=== PATIENT | male | born 1935 | race Caucasian/White ===

== ENCOUNTER 2020-01-14 09:31 | Emergency (ER) | payer MEDICARE ==
[~2020-01-14] VITALS: Ht 167.6 cm; Wt 55.0 kg
[2020-01-14 10:01] LABS: BASO # 0.2 x10^3/uL (0.0-0.2); BASO % 1 % (0-3); EOS # 4.1 x10^3/uL (0.0-0.7); EOS % 13 % (0-3); HEMATOCRIT 43.2 % (39.0-53.0); HEMOGLOBIN 13.9 g/dL (13.0-17.5); LYMPH # 2.8 x10^3/uL (1.0-4.8); LYMPH % 9 % (24-48); MEAN CORPUSCULAR HEMOGLOBIN 28 pg (25-35); MEAN CORPUSCULAR HGB CONC 32 g/dL (31-37); MEAN CORPUSCULAR VOLUME 87 fL (79-100); MONO % 6 % (0-9); NEUT # 21.7 x10^3/uL (1.8-7.7); NEUT % 71 % (31-73); PLATELET COUNT 281 x10^3/uL (140-400); RED BLOOD COUNT 4.96 x10^6/uL (4.30-5.70); RED CELL DISTRIBUTION WIDTH 15.1 % (11.5-14.5); WHITE BLOOD COUNT 30.8 x10^3/uL (4.0-11.0)
[2020-01-14 10:16] LABS: ACETAMIN < 2 mcg/ml (10-30); SALIC < 2.8 mg/dL (2.8-20.0)
[2020-01-14 10:17] LABS: CALCIUM 11.2 mg/dL (8.5-10.1); CREATININE 3.9 mg/dL (0.7-1.3); GFR 14.8; POTASSIUM 4.9 mmol/L (3.5-5.1)
[2020-01-14 10:28] LABS: ALBUMIN 2.5 g/dL (3.4-5.0); ALBUMIN/GLOBULIN RATIO 0.6 (1.0-1.7); MAGNESIUM 1.9 mg/dL (1.8-2.4); TOTAL BILIRUBIN 0.2 mg/dL (0.2-1.0); TOTAL PROTEIN 6.7 g/dL (6.4-8.2)
[2020-01-14 10:49] LABS: BASE EXCESS ABG 5 mmol/L (-3-3); HCO3 ABG 30 mmol/L (21-28); PCO2 ABG 50 mmHg (35-46); PO2 ABG 118 mmHg (65-108); SAT O2 ABG 98 % (92-99)
[2020-01-14 10:58] LABS: FIO2 ABG 2L NC
[2020-01-14] MEDS ORDERED: VANCOMYCIN 2.5 GM in IV NORMAL SALINE 500ML BAG 500 ML IV ONE (11:00)
[2020-01-14] MEDS ORDERED: PIPERACILLIN/TAZOBACTAM 3.375 GM in IV NORMAL SALINE 50ML 50 ML IV ONE (11:00)
[2020-01-14] MEDS ORDERED: IV NORMAL SALINE 1000ML BAG 1,000 ML IV ONE (11:00)
[2020-01-14 11:30] LABS: % BANDS 6 % (0-9); % EOS 7 % (0-5); % LYMPHS 17 % (24-48); % MONOS 3 % (0-10); % SEGS 67 % (35-66)
[2020-01-14 11:31] LABS: PLT ESTIMATE ADEQUATE (ADEQUATE)
--- NOTE | 2020-01-14 11:40 | RAD ---
EXAM: Head and cervical spine CT without contrast. HISTORY: Trauma. TECHNIQUE: Computed tomographic images of the head and cervical spine were obtained without contrast. *One or more of the following individualized dose reduction techniques were utilized for this examination: 1. Automated exposure control. 2. Adjustment of the mA and/or kV according to patient size. 3. Use of iterative reconstruction technique. COMPARISON: None. FINDINGS: Head: There is no intracranial hemorrhage. There is no mass effect or midline shift. There is cerebral atrophy. There are areas of hypodensity within the cerebral white matter due to chronic small vessel disease. No calvarial lesion is seen. There is evidence of lens surgery. There is a left maxillary sinus retention cyst. There is minimal fluid within mastoid air cells. Cervical spine: There is multilevel endplate remodeling. There are bridging and partially bridging anterior osteophytes at the upper cervical levels. There is multilevel facet arthropathy. There is degenerative fusion of the left facet joints at C2-C3 and right facet joints at C3-C4. There are multiple disc bulges and disc extrusions. The combination of degenerative changes results in moderate right greater than left foraminal stenosis at C2-C3, severe right and mild left foraminal stenosis at C3-C4, moderate bilateral foraminal stenosis at C4-C5, and mild bilateral foraminal stenosis at C5-C6. IMPRESSION: 1.No acute intracranial finding or evidence of acute cervical spine trauma. 2. Bilateral cerebral white matter changes, likely due to chronic small vessel disease. 3. Cervical atrophy. 4. 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 Electronically signed by: Aura Hsu MD (01/14/2020 11:37 AM) [id number]
--- NOTE | 2020-01-14 11:42 | RAD ---
EXAM: Chest, single view. HISTORY: Altered mental status. COMPARISON: None. FINDINGS: A frontal view of the chest is obtained. There is suspected bilateral basilar atelectasis. There is no consolidation, pleural effusion or pneumothorax. The heart is normal in size. There are median sternotomy changes. There is a reverse right shoulder arthroplasty. IMPRESSION: Suspected bilateral basilar atelectasis. Electronically signed by: Aura Hsu MD (01/14/2020 11:40 AM) [id number]
[2020-01-14 12:31] LABS: BILIRUBIN,URINE SMALL (NEG); CLARITY,URINE CLEAR; COLOR,URINE YELLOW; NITRITE,URINE NEGATIVE (NEG); PROTEIN,URINE NEGATIVE (NEG-TRACE); UROBILINOGEN,URINE 0.2 mg/dL (0.2 mg/dL)
[2020-01-14 12:40] LABS: AMORPHOUS SEDIMENT,UR PRESENT /HPF; HYALINE CASTS, URINE MANY /HPF
[2020-01-14 12:41] LABS: BACTERIA,URINE 0 /HPF (0-FEW); RBC,URINE 20-40 /HPF (0-2); WBC,URINE 0 /HPF (0-4)
--- NOTE | 2020-01-14 12:47 | PHYS DOC ---
General Adult EDM: Chief Complaint: ALTERED MENTAL STATUS HPI: HPI: History obtained from EMS. Patient is 84-year-old male with unknown past medical history who presents with chief complaint of altered mental status. Per EMS the patient was noted to be more altered than normal at his assisted living facility. They state that they report received from this facility was minimal. They state he typically receives his care at [facility] but diverted to our facility due to low blood pressure readings in route. No history can be obtained from the patient given his accompanying documented history of mild cog nitive impairment and dementia. GCS (9) [id number] Review of Systems: Review of Systems: Review of symptoms unable to be obtained secondary to the patient's altered ment al status Heart Score: HEART Score for Chest Pain: HEART Score for Chest Pain Response (Comments) Value History Slighlty/Non-Suspicious 0 ECG Nonspecific Repolarizatio 1 Age > 65 2 Risk Factors 1 or 2 Risk Factors 1 Troponin >1-<3x Normal Limit 1 Total 5 Risk Factors: Risk Factors: DM, Current or recent (<one month) smoker, HTN, HLP, family history of CAD, obesity. Risk Scores: Score 0 - 3: 2.5% MACE over next 6 weeks - Discharge Home Score 4 - 6: 20.3% MACE over next 6 weeks - Admit for Clinical Observation Score 7 - 10: 72.7% MACE over next 6 weeks - Early Invasive Strategies Current Medications: Current Medications Medications (Trade) Dose Ordered Sig/Breanna Start Time Stop Time Status Last Admin Dose Admin Piperacillin Sod/ Tazobactam Sod 3.375 gm/Sodium Chloride 50 ml @ 100 mls/hr 1X ONCE 01/14/20 11:00 01/14/20 11:29 DC 01/14/20 12:07 100 MLS/HR Sodium Chloride 1,000 ml @ 2,000 mls/hr 1X ONCE 01/14/20 11:00 01/14/20 11:29 DC 01/14/20 12:06 2,000 MLS/HR Vancomycin HCl 2.5 gm/Sodium Chloride 500 ml @ 250 mls/hr 1X ONCE 01/14/20 11:00 01/14/20 12:59 UNV Allergies: Allergies: Allergies Coded Allergies Type Severity Reaction Last Updated Verified Sulfa (Sulfonamide Antibiotics) Allergy Unknown 01/14/20 Yes gabapentin Allergy Unknown 01/14/20 Yes hydrocodone Allergy Unknown 01/14/20 Yes Physical Exam: PE: Constitutional: Well developed, well nourished, no acute distress, non-toxic appearance. [] HENT: Normocephalic, atraumatic, bilateral external ears normal, oropharynx moist, no oral exudates, nose normal. [] Eyes: PERRLA, EOMI, conjunctiva normal, no discharge. [] Neck: Normal range of motion, no tenderness, supple, no stridor. [] Cardiovascular:Heart rate regular rhythm, no murmur [] Lungs & Thorax: Bilateral breath sounds clear to auscultation [] Abdomen: Bowel sounds normal, soft, no tenderness, no masses, no pulsatile masses. [] Skin: Warm, dry, no erythema, no rash. [] Back: No tenderness, no CVA tenderness. [] Extremities: No tenderness, no cyanosis, no clubbing, ROM intact, no edema. [] Neurologic: Alert and oriented X 3, normal motor function, normal sensory function, no focal deficits noted. [] Psychologic: Affect normal, judgement normal, mood normal. [] Current Patient Data: Labs: Laboratory Tests Test 01/14/20 09:45 01/14/20 10:40 01/14/20 12:20 White Blood Count 30.8 x10^3/uL (4.0-11.0) H Red Blood Count 4.96 x10^6/uL (4.30-5.70) Hemoglobin 13.9 g/dL (13.0-17.5) Hematocrit 43.2 % (39.0-53.0) Mean Corpuscular Volume 87 fL (79-100) Mean Corpuscular Hemoglobin 28 pg (25-35) Mean Corpuscular Hemoglobin Concent 32 g/dL (31-37) Red Cell Distribution Width 15.1 % (11.5-14.5) H Platelet Count 281 x10^3/uL (140-400) Neutrophils (%) (Auto) 71 % (31-73) Lymphocytes (%) (Auto) 9 % (24-48) L Monocytes (%) (Auto) 6 % (0-9) Eosinophils (%) (Auto) 13 % (0-3) H Basophils (%) (Auto) 1 % (0-3) Neutrophils # (Auto) 21.7 x10^3/uL (1.8-7.7) H Lymphocytes # (Auto) 2.8 x10^3/uL (1.0-4.8) Monocytes # (Auto) 2.0 x10^3/uL (0.0-1.1) H Eosinophils # (Auto) 4.1 x10^3/uL (0.0-0.7) H Basophils # (Auto) 0.2 x10^3/uL (0.0-0.2) Segmented Neutrophils % 67 % (35-66) H Band Neutrophils % 6 % (0-9) Lymphocytes % 17 % (24-48) L Monocytes % 3 % (0-10) Eosinophils % 7 % (0-5) H Platelet Estimate Adequate (ADEQUATE) Sodium Level 157 mmol/L (136-145) H Potassium Level 4.9 mmol/L (3.5-5.1) Chloride Level 114 mmol/L (98-107) H Carbon Dioxide Level 31 mmol/L (21-32) Anion Gap 12 (6-14) Blood Urea Nitrogen 96 mg/dL (8-26) H Creatinine 3.9 mg/dL (0.7-1.3) H Estimated GFR (Cockcroft-Gault) 14.8 BUN/Creatinine Ratio 25 (6-20) H Glucose Level 220 mg/dL (70-99) H Lactic Acid Level 3.5 mmol/L (0.4-2.0) H Calcium Level 11.2 mg/dL (8.5-10.1) H Magnesium Level 1.9 mg/dL (1.8-2.4) Total Bilirubin 0.2 mg/dL (0.2-1.0) Aspartate Amino Transferase (AST) 22 U/L (15-37) Alanine Aminotransferase (ALT) 19 U/L (16-63) Alkaline Phosphatase 94 U/L (46-116) Creatine Kinase 27 U/L (39-308) L Troponin I Quantitative 0.095 ng/mL (0.000-0.055) OD-Ujp-W-Type Natriuretic Peptide 4410 pg/mL (0-449) H Total Protein 6.7 g/dL (6.4-8.2) Albumin 2.5 g/dL (3.4-5.0) L Albumin/Globulin Ratio 0.6 (1.0-1.7) L Lipase 56 U/L (73-393) L Salicylates Level < 2.8 mg/dL (2.8-20.0) L Salicylate Last Dose Date Unknown Salicylate Last Dose Time Unknown Acetaminophen Level < 2 mcg/ml (10-30) L Acetaminophen Last Dose Date Unknown Acetaminophen Last Dose Time Unknown O2 Saturation 98 % (92-99) Arterial Blood pH 7.41 (7.35-7.45) Arterial Blood pCO2 at Patient Temp 50 mmHg (35-46) H Arterial Blood pO2 at Patient Temp 118 mmHg (65-108) H Arterial Blood HCO3 30 mmol/L (21-28) H Arterial Blood Base Excess 5 mmol/L (-3-3) H FiO2 2l nc Urine Collection Type Unknown Urine Color Yellow Urine Clarity Clear Urine pH 5.0 (<5.0-8.0) Urine Specific [place] 1.020 (1.000-1.030) Urine Protein Negative mg/dL (NEG-TRACE) Urine Glucose (UA) Negative mg/dL (NEG) Urine Ketones (Stick) Negative mg/dL (NEG) Urine Blood Small (NEG) Urine Nitrite Negative (NEG) Urine Bilirubin Small (NEG) Urine Urobilinogen Dipstick 0.2 mg/dL (0.2 mg/dL) Urine Leukocyte Esterase Negative (NEG) Urine RBC 20-40 /HPF (0-2) Urine WBC 0 /HPF (0-4) Urine Amorphous Sediment Present /HPF Urine Bacteria 0 /HPF (0-FEW) Urine Hyaline Casts Many /HPF Urine Mucus Mod /LPF Laboratory Tests 01/14/20 09:45 Laboratory Tests 01/14/20 09:45 EKG: EKG: [] EKG consistent with sinus tachycardia. Ventricular rate of 142 bpm. Left axis noted. Some irregularity noted in the QRS complexes. Could be underlying atrial fibrillation. No acute ischemic changes noted. Radiology/Procedures: Radiology/Procedures: [facility] [address] [place] [address] IMAGING REPORT Signed PATIENT: OMAR VILLAGOMEZ ACCOUNT: [id number] : 1935 LOCATION: ER AGE: 84 SEX: M EXAM STATUS: REG ER ORD. PHYSICIAN: XIOMARA STOVALL DO REASON: ams,ALSO CT HEAD/NECK PROCEDURE: CHEST AP ONLY EXAM: Chest, single view. HISTORY: Altered mental status. COMPARISON: None. FINDINGS: A frontal view of the chest is obtained. There is suspected bilateral basilar atelectasis. There is no consolidation, pleural effusion or pneumothorax. The heart is normal in size. There are median sternotomy changes. There is a reverse right shoulder arthroplasty. IMPRESSION: Suspected bilateral basilar atelectasis. Electronically signed by: Aura Aranda MD (01/14/2020 11:40 AM) [id number] DICTATED and SIGNED BY: AURA ARANDA MD DATE: 01/14/20 1140 [] Course & Med Decision Making: Course & Med Decision Making Pertinent Labs and Imaging studies reviewed. (See chart for details) [] Patient is a nonverbal 84-year-old male who presents from his assisted living facility for altered mental status. He receives all of his care at [facility]. Vital signs notable for tachycardia. Normal blood pressure upon arrival. GCS of 9. However, patient is protecting his airway. Sepsis protocol was initiated. Blood cultures obtained and pending. Patient does have multiple metabolic derangements. He does have a leukocytosis of 30,000. Signs of acute renal failure with a creatinine of 3.9 and a BUN of 9.6. Normal kidney potassium. Hyponatremia 157 suggesting dehydration. Lactate 3.7. Fluid resuscitation was initiated. He was given broad-spectrum antibiotics including vancomycin and Zosyn. Chest x-ray does show potential bilateral lower lobe infiltrates. Urinalysis pending at this time. Patient does have slightly elevated troponin likely type II NSTEMI in the setting of his sepsis and tachycardia. Son did request transfer of the patient to [facility]. I did speak with Dr. Nieto who is accepted the patient their facility. He currently remains hemodynamically stable will be transported. Taran Disclaimer: Taran Disclaimer: This electronic medical record was generated, in whole or in part, using a voice recognition dictation system. Departure Departure Impression: Primary Impression: Sepsis Qualified Codes: A41.9 - Sepsis, unspecified organism Additional Impressions: Acute renal failure Qualified Codes: N17.9 - Acute kidney failure, unspecified Hypernatremia NSTEMI (non-ST elevated myocardial infarction) Disposition: 02 DC/TRF OTHER SHORT TERM HOS Condition: STABLE Referrals: MCKENNA LOCO DO (PCP) XIOMARA STOVALL DO Jan 14, 2020 12:47
[2020-01-14] MEDS ORDERED: VANCOMYCIN 1.25 GM in IV NORMAL SALINE 250ML 250 ML IV ONE (13:30)
[2020-01-14 15:51] VITALS: BP 126/73
--- NOTE | 2020-01-14 16:20 | EKG ---
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
--- NOTE | 2020-01-16 15:01 | NUR ---
IP: Pt is resident at [facility]. Results of negative COVID given to Lisa [employer]er.
== END 2020-01-14 16:20 | disposition short-term general hospital (02) ==
LOC: ER 09:31
DX: A41.9 Sepsis, unspecified organism (principal); N17.9 Acute kidney failure, unspecified; I21.4 Non-ST elevation (NSTEMI) myocardial infarction; Z20.818 Contact with and (suspected) exposure to other bacterial communicable diseases; E87.0 Hyperosmolality and hypernatremia; R41.82 Altered mental status, unspecified; Z88.2 Allergy status to sulfonamides; Z88.5 Allergy status to narcotic agent; Z88.8 Allergy status to other drugs, medicaments and biological substances
CPT/HCPCS: 36415; 36600; 70450; 71045; 72125; 80053; 80329; 81001; 82550; 82805; 83605; 83690; 83735; 83880; 84484; 85007; 85025; 87040; 93005; 96365; 96366; 96367; 99285; C9803; J2543; J3370; J7030; J7050; U0003; G0480